=== PATIENT | male | born 1990 | race Caucasian/White ===

== ENCOUNTER 2016-11-13 17:42 | Emergency (ER) | payer OTHER ==
[~2016-11-13] VITALS: Ht 180.3 cm; Wt 90.4 kg
[~2016-11-13 17:42] MED LIST: BACTRIM,SEPT1 TABLET PO; BENTYL10 MG PO; CEFDINIR300 MG PO; CLEOCIN300 MG PO; CLINDAMYCIN HC300 MG PO; FIORICET 50-301 EACH PO; FLEXERIL10 MG PO; KEFLEX500 MG PO; MOBIC15 MG PO; MOTRIN800 MG PO; NAPROSYN500 MG PO; NAPROXEN500 MG PO; SUBOXONE 4 MG-1 EACH SL; TESSALON PERLE100 MG PO; TORADOL10 MG PO; TRAMADOL HCL50 MG PO; TYLENOL REGULA325 MG PO; ZITHROMAX Z-PA250 MG PO; ZOFRAN4 MG PO; ZYRTEC5 MG PO
[2016-11-13] MEDS ORDERED: BACTRIM,SEPT1 TABLET PO (19:39)
[2016-11-13] MEDS ORDERED: KEFLEX500 MG PO (19:39)
[2016-11-13] MEDS ORDERED: TORADOL10 MG PO (19:39)
[2016-11-13 20:13] VITALS: BP 139/87
== END 2016-11-13 20:13 | disposition home or self-care (01) ==
LOC: EME 17:42
DX: L03.012 Cellulitis of left finger (principal); F17.200 Nicotine dependence, unspecified, uncomplicated; Z88.1 Allergy status to other antibiotic agents; Z88.0 Allergy status to penicillin; Z86.718 Personal history of other venous thrombosis and embolism
CPT/HCPCS: 99281; 99283; J1885

== ENCOUNTER 2016-11-16 16:45 | Emergency (ER) | payer OTHER ==
[~2016-11-16] VITALS: Ht 180.3 cm; Wt 90.8 kg
[2016-11-16 20:02] LABS: BASOPHIL COUNT 0.1 K/uL (0-0.1); EOSINOPHIL (%) 3.9 % (0-5); EOSINOPHIL COUNT 0.4 K/uL (0-0.3); HEMATOCRIT 39.1 % (38.0-50.0); IMMATURE GRANULOCYTE (%) 0.3 % (0.0-0.7); INSTRUMENT ABS NEUTROPHIL CT 6.4 K/uL; LYMPHOCYTE COUNT 2.7 K/uL (1.0-2.8); MCH 27.4 PG (29.0-34.0); MCHC 33.2 G/DL (30.0-36.0); MCV 82.3 FL (86-99); MEAN PLAT.VOLUME 10.1 uM^3 (9.0-12.4); MONOCYTE (%) 6.1 % (3-12); MONOCYTE COUNT 0.6 K/uL (0-0.8); NEUTROPHIL COUNT 6.4 K/uL (1.8-6.4); PLATELET COUNT 305 K/uL (156-360); RBC DIS.WIDTH-CV 12.8 % (11.8-14.6); RBC DIS.WIDTH-SD 38.7 % (39-53); RED BLOOD COUNT 4.75 M/uL (4.00-5.50); WHITE BLOOD COUNT 10.2 K/uL (4.1-10.2)
[2016-11-16 20:11] LABS: CHLORIDE 105 mEq/L (99-109); POTASSIUM 4.6 mEq/L (3.7-5.4); SODIUM 139 mEq/L (136-147)
[2016-11-16 20:13] LABS: GLUCOSE 104 mg/dL (70-99)
[2016-11-16 20:14] LABS: ANION GAP 12 MEQ/L (2-14)
[2016-11-16 20:16] LABS: GFR ESTIMATE (CALCULATED) > 59 mL/min/
[2016-11-16 20:17] LABS: UREA NITROGEN (BUN) 12 mg/dL (9-23)
[2016-11-16] MEDS ORDERED: LINEZOLID600 MG PO (22:23)
[2016-11-16] MEDS ORDERED: TORADOL10 MG PO (23:33)
[2016-11-16 23:41] VITALS: BP 138/88
== END 2016-11-16 23:43 | disposition left against medical advice (07) ==
LOC: EME 16:45
PROVIDERS: Physician Assistant
DX: L03.114 Cellulitis of left upper limb (principal); F17.200 Nicotine dependence, unspecified, uncomplicated; Z16.30 Resistance to unspecified antimicrobial drugs; Z88.0 Allergy status to penicillin
CPT/HCPCS: 73201; 80048; 83605; 85025; 87040; 87070; 87075; 87076; 87205; 99281; 99285; J0571; J1885; J3370; J7030

== ENCOUNTER 2017-04-17 21:18 | Emergency (ER) | payer OTHER ==
[~2017-04-17] VITALS: Ht 180.3 cm; Wt 88.8 kg
[~2017-04-17 21:18] MED LIST changes: +LINEZOLID600 MG PO
[2017-04-18] MEDS ORDERED: VIBRAMYCIN100 MG PO (00:31)
[2017-04-18] MEDS ORDERED: TORADOL10 MG PO (00:31)
[2017-04-18 00:46] VITALS: BP 145/103
== END 2017-04-18 00:47 | disposition home or self-care (01) ==
LOC: EME 21:18
PROC: 0H9KXZZ Drainage of Right Lower Leg Skin, External Approach (ICD-10-PCS; principal; 2017-04-17)
DX: L03.115 Cellulitis of right lower limb (principal); L02.415 Cutaneous abscess of right lower limb; F17.200 Nicotine dependence, unspecified, uncomplicated
CPT/HCPCS: 87070; 87075; 87076; 87205; 99281; 99284

== ENCOUNTER 2017-04-29 17:14 | Emergency (ER) | payer OTHER ==
[~2017-04-29] VITALS: Ht 185.4 cm; Wt 87.1 kg
[~2017-04-29 17:14] MED LIST changes: +VIBRAMYCIN100 MG PO
[2017-04-29] MEDS ORDERED: BACTRIM,SEPT1 TABLET PO (19:00)
[2017-04-29] MEDS ORDERED: KEFLEX500 MG PO (19:00)
[2017-04-29] MEDS ORDERED: TORADOL10 MG PO (19:22)
[2017-04-29 19:27] VITALS: BP 146/94
== END 2017-04-29 19:27 | disposition home or self-care (01) ==
LOC: EME 17:14
PROC: 0H9KXZZ Drainage of Right Lower Leg Skin, External Approach (ICD-10-PCS; principal; 2017-04-29)
DX: L02.415 Cutaneous abscess of right lower limb (principal); F17.200 Nicotine dependence, unspecified, uncomplicated
CPT/HCPCS: 99281; 99283; J1885

== ENCOUNTER 2017-05-02 02:45 | Emergency (ER) | payer OTHER ==
[~2017-05-02] VITALS: Ht 180.3 cm; Wt 88.4 kg
[2017-05-02 04:41] VITALS: BP 130/86
== END 2017-05-02 04:41 | disposition home or self-care (01) ==
LOC: EME 02:45
DX: Z48.01 Encounter for change or removal of surgical wound dressing (principal); L02.415 Cutaneous abscess of right lower limb; F17.200 Nicotine dependence, unspecified, uncomplicated
CPT/HCPCS: 99281; 99283

== ENCOUNTER 2017-05-28 20:27 | Emergency (ER) | payer OTHER ==
[~2017-05-28] VITALS: Ht 180.3 cm; Wt 86.9 kg
[2017-05-28] MEDS ORDERED: TORADOL10 MG PO (22:17)
[2017-05-28] MEDS ORDERED: KEFLEX500 MG PO (22:17)
[2017-05-28] MEDS ORDERED: BACTRIM,SEPT1 TABLET PO (22:17)
[2017-05-28 22:24] VITALS: BP 150/89
== END 2017-05-28 22:35 | disposition home or self-care (01) ==
LOC: EME 20:27
DX: L02.415 Cutaneous abscess of right lower limb (principal); F17.200 Nicotine dependence, unspecified, uncomplicated
CPT/HCPCS: 99281; 99284

== ENCOUNTER 2017-11-27 21:39 | Emergency (ER) | payer OTHER ==
[~2017-11-27] VITALS: Ht 180.3 cm; Wt 87.6 kg
[2017-11-28] MEDS ORDERED: BACTRIM,SEPT1 TABLET PO (00:17)
[2017-11-28] MEDS ORDERED: KEFLEX500 MG PO (00:17)
[2017-11-28 00:24] VITALS: BP 131/87
== END 2017-11-28 00:27 | disposition home or self-care (01) ==
LOC: EME 21:39
PROC: 0H9KXZZ Drainage of Right Lower Leg Skin, External Approach (ICD-10-PCS; principal; 2017-11-27)
DX: L02.415 Cutaneous abscess of right lower limb (principal); Z88.0 Allergy status to penicillin; Z88.8 Allergy status to other drugs, medicaments and biological substances
CPT/HCPCS: 99281; 99284